=== PATIENT | female | born 1975 | race American Indian/Alaskan Native ===

== ENCOUNTER 2020-02-22 22:10 | Emergency (ER) | payer SELFPAY ==
[2020-02-22] MEDS ORDERED: HALOPERIDOL LACTATE 5 MG/1 ML INJ ONE (22:12)
[2020-02-22] MEDS ORDERED: diphenhydrAMINE 50 MG/ML VIAL ONE (22:12)
[2020-02-22] MEDS ORDERED: LORazepam 2 MG/ML VIAL ONE (22:13)
[2020-02-22] MEDS ORDERED: HALOPERIDOL LACTATE 5 MG/1 ML INJ IM PRN (22:21)
[2020-02-22] MEDS ORDERED: diphenhydrAMINE 50 MG/ML VIAL IM PRN (22:21)
[2020-02-22] MEDS ORDERED: NALOXONE 0.4 MG/1 ML INJ IV PRN (22:21)
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
[2020-02-22] MEDS ORDERED: ZIPRASIDONE MESYLATE 20 MG VIAL IM ONE ×2 (22:29)
[2020-02-22] MEDS: LORazepam 2 MG/ML VIAL IM PRN ×2 (22:34→23:12)
[2020-02-22 23:12] LABS: Hematocrit 31.5 % (30.3-42.9); Hemoglobin 10.3 gm/dl (10.1-14.3)
[2020-02-22 23:29] LABS: Alanine Aminotransferase 16 units/L (7-56); Albumin 3.9 g/dL (3.9-5); Blood Urea Nitrogen 9 mg/dL (7-17); Calcium 8.8 mg/dL (8.4-10.2); Hemolysis Index 2
[2020-02-22 23:44] LABS: BUN/Creatinine Ratio 15
[2020-02-23 00:47] LABS: Bilirubin,Urine NEG (Negative); Blood,Urine NEG (Negative); Color,Urine Straw (Yellow); Mucus,Urine FEW /HPF; Protein,Urine <15 mg/dL mg/dL (Negative); Urobilinogen,Urine < 2.0 mg/dL (<2.0); WBC,Urine < 1.0 /HPF (0.0-6.0)
[2020-02-23 00:54] LABS: Amphetamine Screen,Urine PRESUMPTIVE NEGATIVE; Benzodiazepines Screen,Urine PRESUMPTIVE NEGATIVE; Cannabinoid Screen,Urine PRESUMPTIVE NEGATIVE; Cocaine Screen,Urine PRESUMPTIVE POSITIVE; Methadone Screen,Urine PRESUMPTIVE NEGATIVE; Opiate Screen,Urine PRESUMPTIVE NEGATIVE
[2020-02-23 09:40] VITALS: BP 120/65
[2020-02-23] MEDS ORDERED: MAGNESIUM OXIDE 400 MG TAB PO SCH (10:00)
[2020-02-23] MEDS ORDERED: ACETAMINOPHEN 325 MG TAB PO ONE ×2 (12:06→17:17)
== END 2020-02-23 17:35 | disposition home or self-care (01) ==
LOC: ED 22:10
DX: F15.10 Other stimulant abuse, uncomplicated (principal); Z79.899 Other long term (current) drug therapy
CPT/HCPCS: 36415; 80053; 80307; 81001; 82550; 83735; 84702; 85014; 85018; 85049; 93005; 96372; 96374; 99285; J1200; J1630; J2060; J3486; 80320; G0480